=== PATIENT | male | born 1940 | race Caucasian/White ===

== ENCOUNTER 2025-03-08 16:21 | Inpatient (IN) | payer MEDICARE, SELFPAY ==
[2025-03-08] VITALS (12 sets, daily range): BP systolic 100–125; BP diastolic 50–67; BMI 31.3; BMI 30.6
[2025-03-08 11:48] LABS: Hematocrit 24.7 % (39.0-52.0); Hemoglobin 7.5 g/dL (13.0-18.0); Mean Corp Hgb Conc. 30.4 g/dL (33.0-37.0); Mean Corpuscular Volume 90.8 fL (80.0-94.0); Nucleated Red Blood Cells % 0 % (-); Platelet Count 207 10^3/uL (130-400); Red Cell Dist. Width 18.1 % (11.5-14.5)
[2025-03-08 12:02] LABS: ALT (SGPT) 48 U/L (0-50); AST (SGOT) 54 U/L (17-59); Albumin 3.6 g/dl (3.5-5.0); Alkaline Phosphatase 143 U/L (38-126); Blood Urea Nitrogen 54 mg/dl (9-20); Calcium 10.6 mg/dl (8.4-10.2); Carbon Dioxide 25 mmol/L (22-30); Chloride 105 mmol/L (98-107); Estimated Creatinine Clearance 35 ml/min; Glucose 164 mg/dl (70-99); Potassium 5.8 mmol/L (3.5-5.1); Sodium 135 mmol/L (135-145); Total Protein 6.5 g/dl (6.3-8.2); eGFR 36.66
[2025-03-08 12:20] LABS: Troponin I 0.017 ng/ml
[2025-03-08 12:38] LABS: Urine Character Clear (Clear)
[2025-03-08 13:45] LABS: Urine Red Blood Cell 0-2 /HPF (0-2)
--- NOTE | 2025-03-08 13:55 | ED.GENMED ---
History of Present Illness
<Carla Vogel PA-C - Last Filed: 03/08/25 22:18>
General
Chief Complaint: Change in Mental Status
Source: patient and family
Exam Limitations: dementia
Time Seen by Provider: 03/08/25 12:13
Nursing documentation reviewed up to this point in time: agreed with
History of Present Illness
History of Present Illness:
Patient is an 84-year-old male with history atrial fibrillation on Eliquis, congestive heart failure, hypertension, hyperlipidemia, CKD, insulin-dependent diabetes who presents to the emergency department for evaluation of altered mental status.
Patient's daughter reports a gradual decline in his mental status over the past week. There have been multiple instances where he has been forgetful and confused about his medications.
He was seen at [facility] yesterday with concern of UTI. Apparently he had lab work, urinalysis, chest x-ray, and a CT scan of his head and discharged back home.
Today, patient seemed persistently confused prompting return to the emergency department for second opinion.
On arrival, patient has no acute complaints. He specifically denies any headache, chest pain, shortness of breath, or abdominal pain. There has been no recent history of fever.
Patient lives in independent living at [facility] however his family is currently looking to obtain additional care with possible assisted living.
Review of Systems
<Carla Vogel PA-C - Last Filed: 03/08/25 22:18>
Review of Systems
Allergies reviewed?: Yes
All Other Systems: ROS reviewed and negative except as documented in HPI and ROS
Phy Exam
<Carla Vogel PA-C - Last Filed: 03/08/25 22:18>
Physical Exam
Physical Exam:
Vitals: Patient's vital signs are stable. Afebrile
General: Patient is generally weak appearing
Skin: Warm and dry, no rashes or lesions
Head: Normocephalic, atraumatic
Eyes: Sclera nonicteric. EOMs intact. No nystagmus.
Throat: Protecting airway
Neck: Normal ROM, no cervical spine tenderness, no meningismus
Cardiac: Regular rate and rhythm, no murmurs.
Pulm: Normal respiratory effort, no wheezes, rales, rhonchi heard on exam
Abdomen: Abdomen soft and nontender.
Extremities: Bilateral lower extremity edema right > left
Neuro: AAOx3. Fluid speech however somewhat disorganized thought process. No focal neurologic deficits.
Psychiatric: Normal affect.
Course
<Carla Vogel PA-C - Last Filed: 03/08/25 22:18>
Orders/Labs/Results
Orders:
Orders
03/08/25 Breakfast
Clear Liquid
At Your Request: Limited Participation
Does patient need a safe tray?: No
03/08/25 11:35
EKG [Electrocardiogram (*1)] Urgent
Reason for Study: Fatigue / Weakness
03/08/25 11:36
EKG- Treatment ONCE
03/08/25 11:37
Complete Blood Count/With Diff Urgent
Comprehensive Metabolic Panel Urgent
Ferritin Urgent
Comment: ADD ON
Glycohemoglobin (HgbA1c) Urgent
Iron Urgent
Comment: ADD ON
NT-proBNP Urgent
Total Iron Binding Urgent
Comment: ADD ON
Troponin I Urgent
Urinalysis Reflex To Culture Urgent
Date Specimen was Collected: 03/08/25
Time Specimen was Collected: 11:36
Urine Microscopic Reflex Cult Urgent
03/08/25 14:43
Add On- LAB Urgent
Tests Added?: Ferritin, iron, TIBC
pacemaker [Interrogate Pacemaker- Treatment] ONCE
Pantoprazole [Protonix IV] 80 mg IV NOW STA
03/08/25 14:46
CR Chest - 2 Views Urgent
Comment:
Reason For Exam: CHF, elevated BNP
03/08/25 15:46
Admit/Transfer Patient As Directed
Co-Sign Provider:
Level of Care: Inpatient admission
Assign to:: Telemetry
Physician / Group: Bin
Diagnosis: TME, CAMMY, Hyperkalemia, Anemia/GI Bleed
Reason for Telemetry: Arrhythmia
Date to Stop Telemetry: 03/11/25
Time to Stop Telemetry: 11:00
Reason for Hospitalization: GI consult, Protonix IVFs
Expected length of stay greater than two midnights?: Yes
ELOS- Estimated Length of Stay in days: 3
I certify the patient meets the requirements for IP care: Yes
PRN Pain Medication Management As Directed
May give lesser potent ordered pain med per pt: Yes
preference::
Protocol:: Medication orders for pain may be administered in a
manner that supports deferring to patient preference
when the pt is:
- Requesting an ordered lesser potent pain medication.
Least to most potent pain medications are defined
as: acetaminophen < NSAID < tramadol < opioids
(morphine, oxycodone, hydromorphone).
- Requesting a lesser dose of the same medication IF
ORDERED.
- Requesting a less intrusive route of administration
if both routes are prescribed by the provider (PO <
IV).
03/08/25 15:50
Code Status As Directed
Resuscitation Status: Full Code
03/08/25 16:00
0.9% Sodium Chloride 500 ml [Nss] 500 ml IV 80 mls/hr
03/08/25 16:12
Type+Screen Routine
H&H Routine
03/08/25 20:01
Acetaminophen [Tylenol] 650 mg PO Q4HPRN PRN
Dextrose 50%-Water [Dextrose 50% Syringe] 12.5 grams IV [id number] PRN
Glucagon [GlucaGen] 1 mg IM PRN PRN
Metoprolol [Lopressor] 100 mg PO BID
03/08/25 20:01
Add On- LAB Routine
Tests Added?: HgbA1C to today's lab
GASTROINTESTINAL CONSULT Routine
Consulting Provider: Sandro White
Was physician already notified: Yes
Activity As Directed
Activity Level: Out of Bed-Early Mobility
With Assistance
Bedside Glucose Monitoring As Directed
Frequency: AC&HS
Additional Instructions:: Change to q6h if pt on TPN, tube feeding or not eating
Bladder Scan As Directed
Follow Bladder Retention/Intermittent Cath Algorithm?: Yes
PRN if no void in __ hours: 6
Frequency: Per Retention Algorithm
If Bladder Scan Result >: 400
then:: Straight cath
I&O [Intake/ Output] As Directed
Frequency: q12h
Pneumatic Compression Sleeves As Directed
Type: Knee high
Straight Cath As Directed
Frequency: Per Retention Algorithm
Additional Instructions: straight cath as needed per acute urinary retention algorithm for 24 hrs
Additional Instructions: for bladder scan greater than 400 mL
Vital Signs As Directed
Frequency: Per unit guidelines
Weight As Directed
Frequency: Daily
DX Deep Vein Thrombosis Video Routine
03/09/25 00:00
Insulin Aspart Corrective Mod [Novolog Flexpen-Moderate Resistance] See Protocol SC Q6
03/09/25 04:00
Pantoprazole [Protonix IV] 40 mg IV Q12H
03/09/25 Breakfast
NPO
Allow oral meds: Yes
Allow clear liquids: 4hrs prior to procedure
Comment: may have unrestricted clear liquid up to 4 hrs prior to scheduled procedure
Basic Metabolic Panel IN AM
Complete Blood Count/No Diff IN AM
Levothyroxine [Synthroid] 75 mcg PO DAILY@0600
03/09/25 08:00
Ferrous Sulfate [Feosol] 325 mg PO DAILY
Montelukast Sodium [Singulair] 10 mg PO DAILY
Tamsulosin [Flomax] 0.4 mg PO DAILY
insulin glargine 8 unit SC DAILY
rosuvastatin 40 mg PO DAILY
03/11/25 11:00
DC Protocol for Telemetry ONCE
Abnormal Lab Results
03/08/25 03/08/25
11:37 16:12
RBC 2.72 L 10^6/uL
(4.70-6.10)
Hgb 7.5 L g/dL 7.2 L g/dL
(13.0-18.0) (13.0-18.0)
Hct 24.7 L % 24.2 L %
(39.0-52.0) (39.0-52.0)
MCHC 30.4 L g/dL
(33.0-37.0)
RDW 18.1 H %
(11.5-14.5)
Absolute Monos (auto) 0.9 H 10^3/uL
(0.1-0.6)
Lymphocytes % 18.5 L %
(20.5-51.1)
Monocytes % 11.6 H %
(1.7-9.3)
Potassium 5.8 H mmol/L
(3.5-5.1)
BUN 54 H mg/dl
(9-20)
Creatinine 1.8 H mg/dL
(0.7-1.3)
Glucose 164 H mg/dl
(70-99)
Calcium 10.6 H mg/dl
(8.4-10.2)
Iron 30 L ug/dl
(49-181)
% Saturation 7 L %
(20-50)
Alkaline Phosphatase 143 H U/L
(38-126)
Urine Bacteria (Reflex) Few A
(Negative)
Urine Albumin (Reflex) 2+ A
(Neg - Trace)
03/08/25 16:12
03/08/25 11:37
Vital Signs
Initial and Last Documented VS:
Initial Vital Signs
BP
101/52
03/08/25 11:22
Last Documented Vital Signs
Temp Pulse Resp BP Pulse Ox
98.3 F 62 18 122/53 97
03/08/25 20:14 03/08/25 20:14 03/08/25 20:14 03/08/25 20:14 03/08/25 20:14
<Topher Lama, DO - Last Filed: 03/08/25 16:47>
Orders/Labs/Results
Orders:
Orders
03/08/25 Breakfast
Clear Liquid
At Your Request: Limited Participation
Does patient need a safe tray?: No
03/08/25 11:35
EKG [Electrocardiogram (*1)] Urgent
Reason for Study: Fatigue / Weakness
03/08/25 11:36
EKG- Treatment ONCE
03/08/25 11:37
Complete Blood Count/With Diff Urgent
Comprehensive Metabolic Panel Urgent
Ferritin Urgent
Comment: ADD ON
Glycohemoglobin (HgbA1c) Urgent
Iron Urgent
Comment: ADD ON
NT-proBNP Urgent
Total Iron Binding Urgent
Comment: ADD ON
Troponin I Urgent
Urinalysis Reflex To Culture Urgent
Date Specimen was Collected: 03/08/25
Time Specimen was Collected: 11:36
Urine Microscopic Reflex Cult Urgent
03/08/25 14:43
Add On- LAB Urgent
Tests Added?: Ferritin, iron, TIBC
pacemaker [Interrogate Pacemaker- Treatment] ONCE
Pantoprazole [Protonix IV] 80 mg IV NOW STA
03/08/25 14:46
CR Chest - 2 Views Urgent
Comment:
Reason For Exam: CHF, elevated BNP
03/08/25 15:46
Admit/Transfer Patient As Directed
Co-Sign Provider:
Level of Care: Inpatient admission
Assign to:: Telemetry
Physician / Group: Bin
Diagnosis: TME, CAMMY, Hyperkalemia, Anemia/GI Bleed
Reason for Telemetry: Arrhythmia
Date to Stop Telemetry: 03/11/25
Time to Stop Telemetry: 11:00
Reason for Hospitalization: GI consult, Protonix IVFs
Expected length of stay greater than two midnights?: Yes
ELOS- Estimated Length of Stay in days: 3
I certify the patient meets the requirements for IP care: Yes
PRN Pain Medication Management As Directed
May give lesser potent ordered pain med per pt: Yes
preference::
Protocol:: Medication orders for pain may be administered in a
manner that supports deferring to patient preference
when the pt is:
- Requesting an ordered lesser potent pain medication.
Least to most potent pain medications are defined
as: acetaminophen < NSAID < tramadol < opioids
(morphine, oxycodone, hydromorphone).
- Requesting a lesser dose of the same medication IF
ORDERED.
- Requesting a less intrusive route of administration
if both routes are prescribed by the provider (PO <
IV).
03/08/25 15:50
Code Status As Directed
Resuscitation Status: Full Code
03/08/25 16:00
0.9% Sodium Chloride 500 ml [Nss] 500 ml IV 80 mls/hr
03/08/25 16:12
Type+Screen Routine
H&H Routine
03/08/25 20:01
Acetaminophen [Tylenol] 650 mg PO Q4HPRN PRN
Dextrose 50%-Water [Dextrose 50% Syringe] 12.5 grams IV [id number] PRN
Glucagon [GlucaGen] 1 mg IM PRN PRN
Metoprolol [Lopressor] 100 mg PO BID
03/08/25 20:01
Add On- LAB Routine
Tests Added?: HgbA1C to today's lab
GASTROINTESTINAL CONSULT Routine
Consulting Provider: Sandro White
Was physician already notified: Yes
Activity As Directed
Activity Level: Out of Bed-Early Mobility
With Assistance
Bedside Glucose Monitoring As Directed
Frequency: AC&HS
Additional Instructions:: Change to q6h if pt on TPN, tube feeding or not eating
Bladder Scan As Directed
Follow Bladder Retention/Intermittent Cath Algorithm?: Yes
PRN if no void in __ hours: 6
Frequency: Per Retention Algorithm
If Bladder Scan Result >: 400
then:: Straight cath
I&O [Intake/ Output] As Directed
Frequency: q12h
Pneumatic Compression Sleeves As Directed
Type: Knee high
Straight Cath As Directed
Frequency: Per Retention Algorithm
Additional Instructions: straight cath as needed per acute urinary retention algorithm for 24 hrs
Additional Instructions: for bladder scan greater than 400 mL
Vital Signs As Directed
Frequency: Per unit guidelines
Weight As Directed
Frequency: Daily
DX Deep Vein Thrombosis Video Routine
03/09/25 00:00
Insulin Aspart Corrective Mod [Novolog Flexpen-Moderate Resistance] See Protocol SC Q6
03/09/25 04:00
Pantoprazole [Protonix IV] 40 mg IV Q12H
03/09/25 Breakfast
NPO
Allow oral meds: Yes
Allow clear liquids: 4hrs prior to procedure
Comment: may have unrestricted clear liquid up to 4 hrs prior to scheduled procedure
Basic Metabolic Panel IN AM
Complete Blood Count/No Diff IN AM
Levothyroxine [Synthroid] 75 mcg PO DAILY@0600
03/09/25 08:00
Ferrous Sulfate [Feosol] 325 mg PO DAILY
Montelukast Sodium [Singulair] 10 mg PO DAILY
Tamsulosin [Flomax] 0.4 mg PO DAILY
insulin glargine 8 unit SC DAILY
rosuvastatin 40 mg PO DAILY
03/11/25 11:00
DC Protocol for Telemetry ONCE
Abnormal Lab Results
03/08/25 03/08/25
11:37 16:12
RBC 2.72 L 10^6/uL
(4.70-6.10)
Hgb 7.5 L g/dL 7.2 L g/dL
(13.0-18.0) (13.0-18.0)
Hct 24.7 L % 24.2 L %
(39.0-52.0) (39.0-52.0)
MCHC 30.4 L g/dL
(33.0-37.0)
RDW 18.1 H %
(11.5-14.5)
Absolute Monos (auto) 0.9 H 10^3/uL
(0.1-0.6)
Lymphocytes % 18.5 L %
(20.5-51.1)
Monocytes % 11.6 H %
(1.7-9.3)
Potassium 5.8 H mmol/L
(3.5-5.1)
BUN 54 H mg/dl
(9-20)
Creatinine 1.8 H mg/dL
(0.7-1.3)
Glucose 164 H mg/dl
(70-99)
Calcium 10.6 H mg/dl
(8.4-10.2)
Iron 30 L ug/dl
(49-181)
% Saturation 7 L %
(20-50)
Alkaline Phosphatase 143 H U/L
(38-126)
Urine Bacteria (Reflex) Few A
(Negative)
Urine Albumin (Reflex) 2+ A
(Neg - Trace)
03/08/25 16:12
03/08/25 11:37
Vital Signs
Initial and Last Documented VS:
Initial Vital Signs
BP
101/52
03/08/25 11:22
Last Documented Vital Signs
Temp Pulse Resp BP Pulse Ox
98.3 F 62 18 122/53 97
03/08/25 20:14 03/08/25 20:14 03/08/25 20:14 03/08/25 20:14 03/08/25 20:14
<Carla Vogel PA-C - Last Filed: 03/08/25 22:18>
MDM/Problems Addressed
Differential Diagnosis Includes:
Not limited to: viral illness, UTI, electrolyte abnormality, progression of disease, intracranial hemorrhage, etc
MDM/Problems Addressed:
84-year-old male with progressive decline in mental status over the past week. No history of recent trauma. No infectious symptoms. Patient seen at [facility] yesterday with thorough work up, including labs, urinalysis, chest x-ray, CT head
and ultimately discharged home.
Vitals stable. On exam, patient in no distress. He is alert and oriented with no focal neurologic deficits however he does seem to have somewhat disorganized thought process. Abdomen benign. Cardio/pulmonary assessment unremarkable.
Basic labs obtained prior to my evaluation significant for anemia with hemoglobin of 7.1. Chemistry reveals renal insufficiency. Urinalysis does not appear infected. Chest X-ray without acute findings.
Labs appear relatively stable from yesterday.
He had a normal head CT yesterday � do not feel repeat imaging indicated at this time.
Given anemia, a rectal exam was performed, which shows briskly heme positive dark stool. While unclear if this may be contributing to his mental status � evidence of G.I. bleeding on Eliquis likely cause of worsening anemia and will requiring
inpatient management.
He may require placement in assisted living upon discharge. Patient given IV Protonix and admitted to hospitalist service in stable condition.
Chronic conditions affecting care:
Dementia, atrial fibrillation on eliquis
Acute Exacerbation and/or Progression of Chronic Illness:
GI bleeding on eliquis
<Carla Vogel PA-C - Last Filed: 03/08/25 22:18>
*Radiology
Radiology exam reviewed: preliminary read by ED provider and radiology read reviewed
*Pulse Oximetry
SaO2: 100
Oxygen Mode of Delivery: Room air
Patient hypoxic: no
*EKG
Interpreted by ED Provider?: Yes
EKG Intrepretation Date: 03/08/25
Interpretation: abnormal
Comparison EKG: no comparison EKG present
Heart Rate: 60
Rate: normal
Rhythm: ventricular paced
Interval: long QT
*Pipe Straightener Interpretation
Rate: normal
Interpretation: abnormal
Heart Rate: 62
Rhythm: ventricular paced
*Critical Care Note
Total Time (30-74mins, 75-104mins- exclusive of procedures): Not Applicable
Data Reviewed
Review of Other/Old Records Reveals: Labs (Labs performed yesterday at [facility]) and Radiology Studies (Reviewed Head CT performed at [place] yesterday)
<Carla Vogel PA-C - Last Filed: 03/08/25 22:18>
Patient Management
Discussion with other providers: Hospitalist and Director [employer] Engineering (Discussed w/ ED attending physician)
ED Attending Note
<Carla Vogel PA-C - Last Filed: 03/08/25 22:18>
-
Portions of this chart may have been created with voice recognition software.� Occasional wrong word or��sound alike� substitutions may have occurred due to the inherent limitations of voice recognition software.
<Topher Lama DO - Last Filed: 03/08/25 16:47>
ED Attending Note
Patient seen and examined by attending physician: Yes
I performed the substantive portion of visit, reviewed & personally made and approve the management plan that is documented in note by myself or LES.: Yes
ED Attending Note:
I evaluated the patient at bedside. The patient's hemoglobin is low at 7.5 and has heme positive dark brown stool. The hemoglobin at [place] yesterday reportedly was 7.6. Iron levels are low. Daughter states he is doing poorly at [facility].
May need higher level of care but I am concerned of the very low hemoglobin with heme positive stool. Will plan keeping in the hospital tonight.
Discharge Plan
Departure
Patient Disposition: Admit
Date of Disposition: 03/08/25
Time of Disposition: 14:43
Presentation/result/management discussed w/ accepting MD/DO: Hospitalist
Discharge Problem:
Altered mental status, GI bleeding
Interventions
Interventions:
*Risk Screen - Suicide Last Done: 03/08/25 11:21
*General Assessment Last Done: 03/08/25 11:33
*Neglect/Abuse Screening Last Done: 03/08/25 11:21
*ED- Fall Risk Assessment Last Done: 03/08/25 11:21
*ED COVID-19 Vaccine History Last Done: 03/08/25 11:21
*ED Influenza Vaccine History Last Done: 03/08/25 11:21
*Nursing Disposition Last Done: 03/08/25 19:57
ED- Pulmonary Assessment Last Done: 03/08/25 19:57
ED-Psychological Assessment Last Done: 03/08/25 19:57
ED- Neurological Assessment Last Done: 03/08/25 11:34
ED- Cardiac Assessment Last Done: 03/08/25 19:57
ED Swallowing Screen Last Done: 03/08/25 14:04
Discharge Date and Time
Discharge Date/Time: 03/08/25 20:05
[2025-03-08 15:19] LABS: Iron 30 ug/dl (49-181)
[2025-03-08 15:29] LABS: Total Iron Binding Capacity 426 ug/dl (261-462)
[2025-03-08] MEDS: PROTONIX IV 80 MG IV (15:39)
--- NOTE | 2025-03-08 15:43 | HPS.HSE ---
Addendum entered and electronically signed by Zack Steward MD 03/08/25 16:32:
This is an addendum to the H&P written by Chantelle Eastman on 03/08/2025. �Patient seen and examined independently with PA.
84-year-old male past medical history of atrial fibrillation on Eliquis with pacemaker, HFpEF, hypertension, hyperlipidemia, CKD3, diabetes, hypothyroidism, vascular dementia, presenting with altered mental status. �Gradual decline in mental status
over the past week. Had CT scan of the head yesterday at [facility] which was negative.
Hospitalized in February for HFpEF and urinary tract infection. �He was diuresed and lost 40 pounds. �Returned to independent living a week ago with progressive confusion.
Hemoglobin 9.7 in May.
Vital signs unremarkable. �Rectal exam showed dark brown brisk heme positive stool.
�Labs show hemoglobin of 7.5. �Potassium 5.8. �Creatinine 1.8. �Cardiac BNP 2000. �Calcium of 10.6. �Urinalysis unremarkable.
Worsening�mental status appears to be acute metabolic encephalopathy secondary to likely CAMMY/uremia/hyperkalemia on CKD likely from overdiuresis and nephrotoxic medication. �Gentle IV fluids although caution given history of heart failure. �Hold
valsartan, spironolactone and Bumex.
He appears to have acute blood loss anemia from upper GI bleeding. �NPO past midnight. �Protonix 40 twice daily. �Hold Eliquis. �GI consulted. �Type and screen and blood consent signed.
Original Note:
Family Physician
-
Family Physician: Kedar Cain
Chief Complaint
-
Confusion
History of Present Illness
Patient is an 84 y/o male past medical history of paroxysmal atrial fibrillation, congestive heart failure, prior stroke, hypertension, hyperlipidemia, diabetes mellitus, chronic kidney disease, anemia of chronic disease, vascular dementia,
hypothyroidism, and BPH who presents with confusion. Additional history is obtained from patient's daughter at the bedside. Patient was hospitalized at [place] in February for acute heart failure at which time he was diuresed ~30-40lbs. He was
initially discharged to SNF and returned to his independent apartment at [facility] about a week ago. Over the past few days patient has been experiencing increasing confusion. Daughter notest that he has been confused about his medications.
There was concern he gave himself too much insulin yesterday and he presented to [facility]. He had work up including CBC, BMP, UA, CXR, and Head CT; and was subsequently discharged home. His confusion continued this morning and his family
brought him to [facility] for evaluation.
Medical History
Past Medical History
Past Medical History: Reports Other
Additional Past Medical History:
Congestive Heart Failure, preserved EF
Paroxysmal Atrial Fibrillation
CVA
Essential Hypertension
Hyperlipidemia
Diabetes Mellitus, Type II
CKD Stage III
Anemia of Chronic Disease
Vascular Dementia
Depression / Adjustment Disorder
Hypothyroidism
BPH
Spinal Stenosis
Past Surgical History: Reports Other
Additional Past Surgical History:
Permanent Pacemaker
Right Total Knee Replacement
L2/L4/L5/S1 Spinal Surgery
Lumbar Spinal Stimulator
Appendectomy
Penile Implant
Gastric Banding
Social History
Tobacco: Non-smoker
Alcohol: None
Family History
Family History: Not pertinent
Allergies / Home Medications
Allergies reflects when Allergies were last updated in [email or web address].
Home Medications with original date entered in [email or web address]
Allergy/Medication List:
Allergies
Allergy/AdvReac Type Severity Reaction Status Date / Time
amoxicillin (From Augmentin) Allergy Unknown Verified 03/08/25 11:21
clavulanic acid (From Allergy Unknown Verified 03/08/25 11:21
Augmentin)
Home Medications
apixaban 5 mg tablet (Eliquis) 5 mg PO BID 03/08/25
aspirin 325 mg tablet 325 mg PO DAILY 03/08/25
bumetanide 1 mg tablet 1 mg PO DAILY 03/08/25
cholecalciferol (vitamin D3) 25 mcg (1,000 unit) capsule 25 mcg PO DAILY 03/08/25
cyanocobalamin (vitamin B-12) 1,000 mcg tablet 1,000 mcg PO DAILY 03/08/25
ferrous sulfate 325 mg (65 mg iron) tablet 325 mg PO DAILY 03/08/25
insulin glargine 100 unit/mL (3 mL) subcutaneous pen 15 unit SC DAILY 03/08/25
levothyroxine 75 mcg tablet 75 mcg PO DAILY 03/08/25
metoprolol tartrate 100 mg tablet 100 mg PO BID 03/08/25
montelukast 10 mg tablet 10 mg PO DAILY 03/08/25
oxycodone-acetaminophen 5 mg-325 mg tablet 1 tab PO Q6H PRN moderate pain 03/08/25
rosuvastatin 40 mg tablet 40 mg PO DAILY 03/08/25
sitagliptin phosphate 50 mg-metformin 500 mg tablet (Janumet) 1 tab PO BID 03/08/25
spironolactone 25 mg tablet 25 mg PO DAILY 03/08/25
tamsulosin 0.4 mg capsule 0.4 mg PO DAILY 03/08/25
therapeutic multivitamin 1 tab PO DAILY 03/08/25
valsartan 160 mg tablet 160 mg PO DAILY 03/08/25
Review of Systems
-
A 12 point ROS was completed and negative except as noted: Yes
Constitutional: Denies Fever or Chills
Respiratory: Denies Cough or Trouble Breathing
Cardiac: Denies Chest Pain or Palpitations
Abdomen/GI: Denies Abdominal Pain, Nausea, Vomiting or Diarrhea
Physical Exam
Vital Signs
Vital Signs
Temp Pulse Resp BP Pulse Ox
98.1 F 60 18 111/57 100
03/08/25 11:23 03/08/25 15:15 03/08/25 15:15 03/08/25 15:00 03/08/25 15:00
Physical Exam
General: Comfortable and Conversant
HEENT: Anicteric and Moist mucous membranes
Respiratory: Clear and Non Labored Respirations
Cardiac: S1/S2 and Regular Rhythm
GI: Soft and Non Tender
Rectal: Hem Positive (Per ED provider)
Musculoskeletal: No Clubbing, No Cyanosis and Other (+1 pitting edema bilateral lower extremities, which patient reports is significantly improved )
Skin: Warm and Dry
Neuro: Awake, Alert and Nonfocal/grossly intact
Psych: Calm
Laboratory Results
-
03/08/25 11:37
03/08/25 11:37
Laboratory Results
Total Bilirubin 0.6 mg/dl (0.2-1.3) 03/08/25 11:37
AST 54 U/L (17-59) 03/08/25 11:37
ALT 48 U/L (0-50) 03/08/25 11:37
Alkaline Phosphatase 143 U/L (38-126) H 03/08/25 11:37
Troponin I 0.017 ng/ml 03/08/25 11:37
Data Reviewed
-
Diagnostic Radiology: Report Reviewed by me
Lab Data: Labs Reviewed by me
Old Records: Reviewed
Impression/Plan
-
Increased Confusion, likely TME due to Hyperkalemia / Uremia / CAMMY on CKDIII
-Baseline creatinine ~1.3 per records from May 2024
-Hold Bumex, Spironolactone and Losartan
-Patient states he was also taking potassium tablets (possible 2 or 4 20mEq tablets daily?) - This medication does show a recent prescription fill but was not listed on his medication list from [facility], or list form [place]
-Give small amount of IVFs
-Repeat labs later this evening and in AM
Acute Blood Loss Anemia on Anemia of Chronic Disease
-Baseline Hgb ~9.7 per records from May 2024
-Trend serial Hgb
-Blood consent obtained by Dr. Steward at time of admission
Heme-Positive Stool / GI Bleed
-Consult GI
-Continue Protonix 40mg IV BID
-Allow clear liquids today then NPO after midnight
Congestive Heart Failure, preserved EF
-Suspect patient is slightly over diuresed
-Hold Bumex and Spironolactone
-Monitor Daily Weights
Paroxysmal Atrial Fibrillation
-Eliquis on hold due to heme-positive stools
-Continue metoprolol for rate control
Hx CVA
-Continue aspirin
Essential Hypertension
-Continue metoprolol
-Losartan and spironolactone on hold
Hyperlipidemia
-Continue rosuvastatin
Diabetes Mellitus, Type II
-Continue glargine at half usual dose
-Monitor sugars and continue coverage insulin
Hypothyroidism
-Continue levothyroxine
BPH
-Continue tamsulosin
Vascular Dementia, per paperwork from [facility]
-Monitor for mood/behavior changes during hospitalization
DVT proph: SCDs
Code Status: Full Code
[2025-03-08 16:08] LABS: Ferritin 26.8 ng/ml (17.9-464.0)
[2025-03-08] MEDS: NSS 500 IV (16:14)
[2025-03-08 16:29] LABS: Hematocrit 24.2 % (39.0-52.0); Hemoglobin 7.2 g/dL (13.0-18.0)
[2025-03-08 19:23] LABS: Blood Urea Nitrogen 46 mg/dl (9-20); Calcium 8.9 mg/dl (8.4-10.2); Carbon Dioxide 24 mmol/L (22-30); Chloride 110 mmol/L (98-107); Estimated Creatinine Clearance 42 ml/min; Glucose 134 mg/dl (70-99); Sodium 136 mmol/L (135-145); eGFR 45.62
[2025-03-08 21:24] LABS: Glucose - Point of Care 198 mg/dl (70-99)
[2025-03-08 21:52] LABS: Hematocrit 24.5 % (39.0-52.0); Hemoglobin 7.1 g/dL (13.0-18.0)
[2025-03-09] VITALS (11 sets, daily range): BP systolic 104–146; BP diastolic 59–76
[2025-03-09 00:14] LABS: Glucose - Point of Care 123 mg/dl (70-99)
[2025-03-09] MEDS: NOVOLOG FLEXPEN-MODERATE RESISTANCE SC ×3 (00:16→17:01)
[2025-03-09] MEDS: LOPRESSOR PO (00:29)
[2025-03-09] MEDS: TYLENOL 650 MG PO (02:03)
--- NOTE | 2025-03-09 02:14 | PTCARENOTE ---
received pt from ED at 201403/08/2025. pt ambulated from stretcher to bed with rolling walker. pt A&O x 3. pt offers no current complaints. bed alarm pulled in. call jacobs within reach. plan of care ongoing.
[2025-03-09] MEDS: NSS (PRESERVATIVE FREE) 10 ML IV ×2 (04:15→17:03)
[2025-03-09] MEDS: PROTONIX IV 40 MG IV ×2 (04:15→17:03)
[2025-03-09 04:26] LABS: Hematocrit 22.7 % (39.0-52.0); Hemoglobin 7.0 g/dL (13.0-18.0)
--- NOTE | 2025-03-09 04:33 | W.PN.UPDATE ---
Update Note
Progress Note Update
hgb level is trending down gradually, on admission 7.5-->7.2-->7.1 and this morning hgb is 7, vital signs within the baseline. No visible signs of bleeding. One unit of blood ordered.
[2025-03-09 06:20] LABS: Glucose - Point of Care 130 mg/dl (70-99)
[2025-03-09] MEDS: SYNTHROID 75 MCG PO (06:22)
--- NOTE | 2025-03-09 06:38 | CON.GI ---
Addendum entered and electronically signed by Sandro White MD 03/09/25 10:18:
Patient seen and examined, agree with nurse practitioner note. Patient is an 84-year-old male with past medical history as noted who presents to [place] with confusion. He was noted to have renal insufficiency and hyperkalemia, Also found to
have hemoglobin of 7.5. He states that he is never been anemic that he recalls in the past. Looking back it looks like the have been having dark stools that was unclear. In the ER he did have dark stool that was heme positive. He is up on the
Eliquis for many years for paroxysmal A-fib. He had recent hospitalization for heart failure at [place] though currently feels well and denies any shortness of breath. He states his last colonoscopy was with Dr. Sage, at least 5 years ago and
okay by report. He has occasional NSAID use. He currently denies any abdominal pain, nausea or vomiting. On exam he has no significant abdominal tenderness.
1. Anemia: Likely acute blood loss given his dark stools in the setting of Eliquis, with iron deficiency as well, unclear what his baseline is. He currently has no signs of brisk active bleeding and is hemodynamically stable. His last dose of
Eliquis was yesterday morning. At this point we will continue clear liquid diet, PPI and observation. Will plan EGD in the morning. If negative then likely colonoscopy to follow. I discussed with him and his daughter at length.
Original Note:
Consultation
-
Date/Time Consultation Requested: 03/08/251999
Date/Time Consultation Performed: 03/09/25 0640
Requesting Provider: Chantelle Sepulveda PA-C
Performing Provider: RODRIGO Pang, Dinesh White MD
Reason for Consultation: anemia
Medical History
Chief Complaint / HPI
History of Present Illness:
Pt is a 84yo with hx PAF on Eliquis for several years, congestive heart failure with preserveed EF, prior stroke, hypertension, hyperlipidemia, diabetes mellitus, sleep apnea chronic kidney disease, NIDDM, anemia of chronic disease, obesity with
prior gastric band, vascular dementia, hypothyroidism, and BPH with recent admission to [place] in February for acute heart failure with diuresis. He went to SNF then back for [facility] for last week and noted with confusion and presents to .
On admission pt was noted with K 5.8 creat 1.8, calcium 10.6, hbg down to 7 after admission with baseline around 9 range iron 30, TIBC 426, % sat 7 and ferritin 26.8. Pt as also noted with dark heme + stool in ER.
In review with pt and daughter Maria Esther no history of anemia in past. Pt may have had colonoscopy years ago. He did not recall EGD in past but ? completed with gastric banding in past. He currently denies any GI complaints of odynophagia,
dysphagia, GERD, nausea, vomiting, bloating, abdominal pain, diarrhea, constipation or visible blood/black in stool. + wt loss since gastric band over several years. Occasional NSAID use and denies daily ASA as noted on home med list but does use
Tylenol as needed.
Past Medical History
Past Medical History: Arrhythmias (PAF), CHF, CVA, GERD, HTN, Hypercholesterolemia, Hypothyroidism, NIDDM, Renal Failure (CKD stage III), Psychiatric (vascular dementia, depression/adjustment disorder) and Other (anemia of chronic disease, BPH,
spinal stenosis, chronic back pain, sleep apnea)
Past Surgical History: Cardiac (pacer ), Orthopedic (right TKR, spinal surgery ) and Other (spinal stimulator, penile implant , gastric banding )
Social History
Tobacco: Non-Smoker
Alcohol: None
Drug: None
Living: Other ([facility] )
Employment: Retired
Family History
Family History: Other (pt denies family hx GI issues )
Allergies / Home Medications
Allergy/AdvReac Type Severity Reaction Status Date / Time
amoxicillin (From Augmentin) Allergy Unknown Verified 03/08/25 11:21
clavulanic acid (From Allergy Unknown Verified 03/08/25 11:21
Augmentin)
�Medication �Instructions �Recorded
apixaban 5 mg tablet (Eliquis) 5 mg PO BID 03/08/25
aspirin 325 mg tablet 325 mg PO DAILY 03/08/25
bumetanide 1 mg tablet 1 mg PO DAILY 03/08/25
cholecalciferol (vitamin D3) 25 25 mcg PO DAILY 03/08/25
mcg (1,000 unit) capsule
cyanocobalamin (vitamin B-12) 1,000 mcg PO DAILY 03/08/25
1,000 mcg tablet
ferrous sulfate 325 mg (65 mg 325 mg PO DAILY 03/08/25
iron) tablet
insulin glargine 100 unit/mL (3 15 unit SC DAILY 03/08/25
mL) subcutaneous pen
levothyroxine 75 mcg tablet 75 mcg PO DAILY 03/08/25
metoprolol tartrate 100 mg tablet 100 mg PO BID 03/08/25
montelukast 10 mg tablet 10 mg PO DAILY 03/08/25
oxycodone-acetaminophen 5 mg-325 1 tab PO Q6H PRN moderate pain 03/08/25
mg tablet
rosuvastatin 40 mg tablet 40 mg PO DAILY 03/08/25
sitagliptin phosphate 50 1 tab PO BID 03/08/25
mg-metformin 500 mg tablet
(Janumet)
spironolactone 25 mg tablet 25 mg PO DAILY 03/08/25
tamsulosin 0.4 mg capsule 0.4 mg PO DAILY 03/08/25
therapeutic multivitamin 1 tab PO DAILY 03/08/25
valsartan 160 mg tablet 160 mg PO DAILY 03/08/25
Review of Systems
-
History Source: Patient and Family
Constitutional: Reports Weight Loss (with hx gastric band )
EENT: Reports No Symptoms
Respiratory: Reports No Symptoms
Cardiac: Reports No Symptoms
Abdomen/GI: Reports No Symptoms
: Reports No Symptoms
Musculoskeletal: Reports No Symptoms
Neurological: Reports Weakness and Other (confusion prior to admission )
Hematologic/Lymphatic: Reports Bleeding (heme + stool in ER)
Vital Signs
Temp Pulse Resp BP Pulse Ox
97.7 F 61 18 133/64 100
03/09/25 05:36 03/09/25 05:36 03/09/25 05:36 03/09/25 05:36 03/09/25 05:36
Physical Exam
Exam
General: Well Developed, Well Nourished and No Apparent Distress
HEENT: Normocephalic and Anicteric
Respiratory: Clear
Cardiac: Regular Rhythm
GI: Soft, Non Tender and Non Distended
Rectal: Other (dark heme + in ER)
Musculoskeletal: No Clubbing and No Cyanosis
Skin: Warm and Dry
Neuro: Awake, Alert and AO x 3
Psych: Calm
Results
WBC 7.6 10^3/uL (4.8-10.8) 03/08/25 11:37
Hgb 7.0 g/dL (13.0-18.0) L 03/09/25 04:10
Hct 22.7 % (39.0-52.0) L 03/09/25 04:10
MCV 90.8 fL (80.0-94.0) 03/08/25 11:37
Plt Count 207 10^3/uL (130-400) 03/08/25 11:37
Absolute Neuts (auto) 4.8 10^3/uL (1.4-6.5) 03/08/25 11:37
Sodium 136 mmol/L (135-145) 03/08/25 18:30
Potassium mmol/L (3.5-5.1) 03/08/25 18:30
Chloride 110 mmol/L (98-107) H 03/08/25 18:30
Carbon Dioxide 24 mmol/L (22-30) 03/08/25 18:30
BUN 46 mg/dl (9-20) H 03/08/25 18:30
Creatinine 1.5 mg/dL (0.7-1.3) H 03/08/25 18:30
Calcium 8.9 mg/dl (8.4-10.2) D 03/08/25 18:30
Total Bilirubin 0.6 mg/dl (0.2-1.3) 03/08/25 11:37
AST 54 U/L (17-59) 03/08/25 11:37
ALT 48 U/L (0-50) 03/08/25 11:37
Alkaline Phosphatase 143 U/L (38-126) H 03/08/25 11:37
Diagnostic Image Results:
03/08/25 CXR
No acute cardiopulmonary abnormality.
Prior GI Procedures:
EGD: pt denies ? hx with gastric band in past
Colonoscopy: years ago
Assessment / Plan
-
Pt is a 84yo with hx PAF on Eliquis for several years, congestive heart failure with preserveed EF, prior stroke, hypertension, hyperlipidemia, diabetes mellitus, sleep apnea chronic kidney disease, NIDDM, anemia of chronic disease, obesity with
prior gastric band, vascular dementia, hypothyroidism, and BPH with recent admission to [place] in February for acute heart failure with diuresis. He went to SNF then back for [facility] for last week and noted with confusion and presents to .
On admission pt was noted with K 5.8 creat 1.8, calcium 10.6, hbg down to 7 after admission with baseline around 9 range iron 30, TIBC 426, % sat 7 and ferritin 26.8. Pt as also noted with dark heme + stool in ER. In review with pt and daughter
Maria Esther no history of anemia or transfusions in past. Pt may have had colonoscopy years ago. He did not recall EGD in past but ? completed with gastric banding in past. He currently denies any GI complaints and denies visible blood/black in stool.
+ wt loss since gastric band over several years. Occasional NSAID use and denies daily ASA as noted on home med but does use Tylenol as needed.
-acute on chronic anemia with iron deficiency with heme + stools in ER
-confusion on admission
-electrolyte imbalance hyperkalemia
-afib on Eliquis prior to admission
other med problems:
-Congestive Heart Failure, preserved EF
-Hx CVA
-Essential Hypertension
-Hyperlipidemia
-Diabetes Mellitus
-Hypothyroidism
-Continue levothyroxine
-BPH
-Vascular Dementia
PLAN:
etiology of iron deficiency anemia related PUD, ulceration around gastric band, ectasia, mass vs other-- pt also with CAMMY on admission can also add to anemia
discussed with patient and daughter Maria Esther-- would like to proceed with GI work up during admission EGD/+/- colonoscopy
daughter will be in later and discuss further with Dr. White for timing with electrolyte imbalance -- pt wishes for daughter to assist with all decisions for care
ok for clear diet today
cont to correct electrolytes
last Eliquis 03/07 PM cont to hold
cont PPI BID
current transfusion running cont to trend hbg
will hold oral iron and add IV iron
reviewed with nursing staff
-
-
Thank you for consultation and allowing me to participate in the patient's care. Please call the communication skills instructor GI physician during the after hours with any questions or concerns.
[2025-03-09 07:34] LABS: Glucose - Point of Care 140 mg/dl (70-99)
[2025-03-09] MEDS: SINGULAIR 10 MG PO (08:36)
[2025-03-09] MEDS: FLOMAX 0.4 MG PO (08:36)
[2025-03-09] MEDS: LOPRESSOR 100 MG PO ×2 (08:37→20:44)
[2025-03-09] MEDS: CRESTOR 40 MG PO (08:37)
[2025-03-09] MEDS: LANTUS 0.08 UNITS SC (08:39)
[2025-03-09 08:40] LABS: Glycohemoglobin (HgbA1c) 6.6 % (4.0-5.9)
[2025-03-09 11:47] LABS: Glucose - Point of Care 281 mg/dl (70-99)
[2025-03-09 11:56] LABS: Hematocrit 26.0 % (39.0-52.0); Hemoglobin 7.6 g/dL (13.0-18.0); Mean Corp Hgb Conc. 29.2 g/dL (33.0-37.0); Mean Corpuscular Volume 92.9 fL (80.0-94.0); Platelet Count 185 10^3/uL (130-400); Red Cell Dist. Width 17.9 % (11.5-14.5)
[2025-03-09] MEDS: NOVOLOG FLEXPEN-MODERATE RESISTANCE 5 UNITS SC (12:05)
[2025-03-09 12:11] LABS: Blood Urea Nitrogen 43 mg/dl (9-20); Calcium 9.6 mg/dl (8.4-10.2); Carbon Dioxide 24 mmol/L (22-30); Chloride 104 mmol/L (98-107); Estimated Creatinine Clearance 37 ml/min; Glucose 241 mg/dl (70-99); Potassium 4.5 mmol/L (3.5-5.1); Sodium 132 mmol/L (135-145); eGFR 39.26
[2025-03-09] MEDS: FERRLECIT 110 MG IV (13:15)
--- NOTE | 2025-03-09 14:04 | W.PN.HOSP.TC ---
Today's Communication/Plan
-
EGD tomorrow
low rate IVF for CAMMY; repeat AM labs
monitor Hb
d/w Daughter
Assessment / Plan
Assessment / Plan
Assessment:
TME in setting of CAMMY
Underlying early vascular dementia
- monitor mentation
- CT: performed 03/07 at [place] (For presentation there with change in mentation) was negative
- per family, patient more alert today
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
Acute hyperkalemia
- Cr baseline 1.3 per records
- holding nephrotoxins, hold potassium
- follow BMP
ABLA on top of anemia of chronic disease and iron deficiency anemia
- s/p 1 unit PRBC; Hb 7.6. repeat 5pm
- IV iron course
acute GI bleed
- continue PPI BID
- GI consulted; EGD tomorrow
Chronic HFpEF
- holding diuretics for CAMMY
- monitor weights/lytes daily
Paroxysmal Atrial Fibrillation
- Eliquis on hold due to heme-positive stools
- continue metoprolol for rate control
Hx CVA
- continue aspirin
Essential Hypertension
- continue metoprolol
- Losartan and spironolactone on hold
Hyperlipidemia
- continue rosuvastatin
Diabetes Mellitus, Type II
- continue glargine at half usual dose
- Monitor sugars and continue coverage insulin
Hypothyroidism
- continue levothyroxine
BPH
- continue tamsulosin
Vascular Dementia, per paperwork from [facility]
- Monitor for mood/behavior changes during hospitalization
DVT ppx: SCDs
Code: Full
Anticipated Discharge: > 48 hours
Subjective/Interval History
-
Date of Service: March 09, 2025
resting comfortably, no complaints at present
Objective Data
-
Labs:
Laboratory Results
03/09/25 03/09/25 03/09/25
04:10 09:15 11:12
WBC 5.9
Hgb 7.0 L Cancelled 7.6 L
Hct 22.7 L Cancelled
Plt Count
Sodium
Potassium
Chloride
Carbon Dioxide
BUN
Creatinine
Glucose
Calcium
03/09/25 03/09/25 03/09/25
11:12 11:12 15:15
WBC
Hgb Cancelled Cancelled
Hct 26.0 L Cancelled Cancelled
Plt Count 185
Sodium 132 L
Potassium 4.5
Chloride 104
Carbon Dioxide 24
BUN 43 H
Creatinine 1.7 H
Glucose 241 H
Calcium 9.6
03/09/25
17:00
WBC
Hgb Pending
Hct Pending
Plt Count
Sodium
Potassium
Chloride
Carbon Dioxide
BUN
Creatinine
Glucose
Calcium
Vital Signs:
Vital Signs
Temp Pulse Resp BP Pulse Ox
97.3 F 61 16 116/68 94
03/09/25 11:29 03/09/25 11:29 03/09/25 11:29 03/09/25 11:29 03/09/25 11:29
I&O
03/08/25 03/09/25 03/10/25
05:59 06:59 06:59
Intake Total 0 / 0 250 / 250
Output Total 1050 / 1050
Balance -1050 / -1050 250 / 250
Physical Exam
-
General: No Apparent Distress
HEENT: Normocephalic and Atraumatic
Respiratory: Negative Wheezes
Cardiac: Regular Rhythm and S1/S2
GI: Soft
Genito-urinary: No Costovertebral Tender
Neuro: AO x 3
Psych: Calm
Data Reviewed
-
Total Time Spent with Patient (in minutes): 42
Labs: Labs Reviewed by me
--- NOTE | 2025-03-09 14:57 | CM ---
Alert awake oriented patient who lives at [facility]. He is independent all activities of daily living but family is going to increase care for pt.Pt has care givers 3 days a week and for 4 hours.Spoke with Maria Esther vega she wants
his Long VN renewed at [facility] also. He uses a walker and rollator. He requested VN at [facility].
Long VN hx /[facility] SN[facility] history
Pharmacy [facility]
PCP DR Kurtz
PLAN Home with Long VN
[2025-03-09] MEDS: NSS 1000 IV (15:12)
[2025-03-09 16:50] LABS: Glucose - Point of Care 100 mg/dl (70-99)
[2025-03-09 17:09] LABS: Hematocrit 29.2 % (39.0-52.0); Hemoglobin 8.4 g/dL (13.0-18.0)
[2025-03-09 21:47] LABS: Glucose - Point of Care 108 mg/dl (70-99)
[2025-03-10] VITALS (11 sets, daily range): BP systolic 13–146; BP diastolic 52–77
--- NOTE | 2025-03-10 04:55 | PTCARENOTE ---
Pt became agitated and complained of L shoulder and L foot pain. RN given Tylenol. Pt requested to speak to a provider with the new onset pain. RN explained we have QUALITY LEAD overnight that can come see him, but it will take a few minutes. Pt became more
agitated and demanded for the QUALITY LEAD to speak with him immediately and expressed he was unhappy stating, 'I thought [facility] was supposed to be better'. Pt refused his Protonix and daily weight. HAT MENDER came to see the patient and placed an
order for a Lidocaine patch. Pt is resting with call jacobs within reach.
[2025-03-10] MEDS: SYNTHROID 75 MCG PO (05:10)
[2025-03-10] MEDS: TYLENOL 650 MG PO (05:25)
[2025-03-10 05:36] LABS: Glucose - Point of Care 84 mg/dl (70-99)
[2025-03-10] MEDS: NSS (PRESERVATIVE FREE) IV (05:50)
[2025-03-10] MEDS: PROTONIX IV IV (05:51)
[2025-03-10] MEDS: LIDOCAINE 4% PATCH 1 PATCH TOPICAL (06:09)
[2025-03-10] MEDS: LANTUS SC (07:30)
[2025-03-10 08:24] LABS: Hematocrit 25.4 % (39.0-52.0); Hemoglobin 8.1 g/dL (13.0-18.0); Mean Corp Hgb Conc. 31.9 g/dL (33.0-37.0); Mean Corpuscular Volume 87.9 fL (80.0-94.0); Platelet Count 195 10^3/uL (130-400); Red Cell Dist. Width 17.4 % (11.5-14.5)
[2025-03-10 08:27] LABS: INR 1.40; PT 17.4 Sec (11.4-14.6)
[2025-03-10 08:52] LABS: Blood Urea Nitrogen 33 mg/dl (9-20); Calcium 9.9 mg/dl (8.4-10.2); Carbon Dioxide 23 mmol/L (22-30); Chloride 108 mmol/L (98-107); Estimated Creatinine Clearance 41 ml/min; Glucose 75 mg/dl (70-99); Potassium 4.4 mmol/L (3.5-5.1); Sodium 134 mmol/L (135-145); eGFR 45.62
--- NOTE | 2025-03-10 09:23 | W.PN.HOSP.TC ---
Today's Communication/Plan
-
continue IV iron
EGD today
Assessment / Plan
Assessment / Plan
Assessment:
TME in setting of CAMMY
Underlying early vascular dementia
- monitor mentation
- CT: performed 03/07 at [place] (For presentation there with change in mentation) was negative
- per family, back to baseline
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
Acute hyperkalemia
- Cr baseline 1.5 to 1.7 per records
- holding nephrotoxins, hold potassium
- follow BMP
ABLA on top of anemia of chronic disease and iron deficiency anemia
- Hb baseline 9.0 to 9.5
- s/p 1 unit PRBC; Hb 8.1 today
- continue IV iron course
acute GI bleed
- continue PPI BID
- GI consulted; EGD today; if negative then may need colonoscopy
Chronic HFpEF
- holding diuretics for CAMMY
- Jardiance previously stopped due to UTIs
- monitor weights/lytes daily
Paroxysmal Atrial Fibrillation
- Eliquis on hold due to heme-positive stools
- continue metoprolol for rate control
Hx CVA
- continue aspirin
Essential Hypertension
- continue metoprolol
- Losartan and spironolactone on hold
Hyperlipidemia
- continue rosuvastatin
Diabetes Mellitus, Type II
- continue glargine at half usual dose
- Monitor sugars and continue coverage insulin
Hypothyroidism
- continue levothyroxine
BPH
- continue tamsulosin
Vascular Dementia, per paperwork from [facility]
- Monitor for mood/behavior changes during hospitalization
DVT ppx: SCDs
Code: Full
Anticipated Discharge: 24 - 48 hours
Subjective/Interval History
-
Date of Service: March 10, 2025
resting comfortably, no complaints at present
Objective Data
-
Labs:
Laboratory Results
03/10/25
07:35
WBC 6.9
Hgb 8.1 L
Hct 25.4 L
Plt Count 195
PT 17.4 H
INR 1.40
Sodium 134 L
Potassium 4.4
Chloride 108 H
Carbon Dioxide 23
BUN 33 H
Creatinine 1.5 H
Glucose 75
Calcium 9.9
Vital Signs:
Vital Signs
Temp Pulse Resp BP Pulse Ox
97.4 F 61 16 136/61 100
03/10/25 07:52 03/10/25 07:52 03/10/25 07:52 03/10/25 07:52 03/10/25 07:52
I&O
03/09/25 03/10/25 03/11/25
06:59 06:59 06:59
Intake Total 0 / 0 730 / 730
Output Total 1050 / 1050 950 / 950
Balance -1050 / -1050 730 / 730 -950 / -950
Physical Exam
-
General: No Apparent Distress
HEENT: Normocephalic and Atraumatic
Respiratory: Negative Wheezes
Cardiac: Regular Rhythm and S1/S2
GI: Soft and Nontender
Genito-urinary: Negative No Costovertebral Tender
Neuro: AO x 3
Psych: Calm
Data Reviewed
-
Total Time Spent with Patient (in minutes): 41
Labs: Labs Reviewed by me
--- NOTE | 2025-03-10 10:35 | W.PN.UPDATE ---
Update Note
Progress Note Update
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 I did have to inject with epi and clip to stop bleeding.
moderate gastritis
plan:
clears
PPI
monitor and hold off on colonscopy,
hold eliquis today
[2025-03-10] MEDS: FLOMAX 0.4 MG PO (11:21)
[2025-03-10] MEDS: SINGULAIR 10 MG PO (11:21)
[2025-03-10] MEDS: CRESTOR 40 MG PO (11:21)
[2025-03-10] MEDS: LOPRESSOR PO (11:24)
[2025-03-10 11:57] LABS: Glucose - Point of Care 85 mg/dl (70-99)
--- NOTE | 2025-03-10 13:39 | PN.CDI ---
CDI
- -
CDI:
Physician Documentation Request
Admit Date: 03/08/25 16:21
Dear Doctor Elizabeth,
Patient found to have acute GI bleeding. 03/10 EGD performed.
EGD findings included 'Diffuse moderate inflammation characterized by congestion and erythema was found in the entire examined stomach. Three small mucosal papules (nodules) were found in the gastric body and in the gastric fundus.'
Please clarify the likely etiology of the GI bleeding:
nodules
gastritis
Other (please specify)
Use of terms such as suspected, likely, concern for, or probable (associated with a specific diagnosis that is being evaluated, monitored, or treated as if it exists) are acceptable and can be coded in the inpatient setting, when documented at the
time of discharge.
Thank you,
Mandie Paige RN, BSN
CDI Specialist
tiger text
Please use your independent medical judgment in providing your response.
[2025-03-10] MEDS: FERRLECIT 110 MG IV (14:22)
--- NOTE | 2025-03-10 15:49 | PTCARENOTE ---
Received patient this am AAOx3. Pt forgetful. Pt off unit to GI this am. Pt then returned S/P EGD. VSS Pt tolerated clear liquid diet well. Offered no complaints. Made patient comfortable. Cont to assess patient status.
[2025-03-10 16:41] LABS: Glucose - Point of Care 110 mg/dl (70-99)
[2025-03-10] MEDS: NSS (PRESERVATIVE FREE) 10 ML IV (17:32)
[2025-03-10] MEDS: PROTONIX IV 40 MG IV (17:36)
[2025-03-10] MEDS: LOPRESSOR 100 MG PO (20:29)
[2025-03-10 21:11] LABS: Glucose - Point of Care 108 mg/dl (70-99)
[2025-03-11] VITALS (7 sets, daily range): BP systolic 114–143; BP diastolic 51–74; PULSE 63; O2SAT 99; BMI 30.6
[2025-03-11] MEDS: PROTONIX IV 40 MG IV (04:55)
[2025-03-11] MEDS: NSS (PRESERVATIVE FREE) 10 ML IV (04:55)
[2025-03-11] MEDS: SYNTHROID 75 MCG PO (04:57)
[2025-03-11 07:07] LABS: Hematocrit 26.3 % (39.0-52.0); Hemoglobin 8.3 g/dL (13.0-18.0); Mean Corp Hgb Conc. 31.6 g/dL (33.0-37.0); Mean Corpuscular Volume 90.1 fL (80.0-94.0); Platelet Count 197 10^3/uL (130-400); Red Cell Dist. Width 17.6 % (11.5-14.5)
[2025-03-11 07:27] LABS: Blood Urea Nitrogen 26 mg/dl (9-20); Calcium 10.2 mg/dl (8.4-10.2); Carbon Dioxide 23 mmol/L (22-30); Chloride 110 mmol/L (98-107); Estimated Creatinine Clearance 44 ml/min; Glucose 99 mg/dl (70-99); Potassium 4.7 mmol/L (3.5-5.1); Sodium 135 mmol/L (135-145); eGFR 49.56
[2025-03-11 07:56] LABS: Glucose - Point of Care 99 mg/dl (70-99)
[2025-03-11] MEDS: NOVOLOG FLEXPEN-MODERATE RESISTANCE SC ×2 (09:11→12:00)
--- NOTE | 2025-03-11 09:14 | W.PN.GI.CBS2 ---
Today's Communication / Plan
-
hgb stable, eliquis restarted
Assessment / Plan
-
Pt is a 84yo with hx PAF on Eliquis for several years, congestive heart failure with preserveed EF, prior stroke, hypertension, hyperlipidemia, diabetes mellitus, sleep apnea chronic kidney disease, NIDDM, anemia of chronic disease, obesity with
prior gastric band, vascular dementia, hypothyroidism,, with melena s/p gastric erosion vs dielaufoy bleed
-hgb stable
- eliquis restarted
- if rebleeds would consider holding eliquis for longer
will sign off
did d/w Dr. Mendiola, pt and daughter ramiro
Subjective
Subjective
Date of Service: March 11, 2025
Pt w/o any bleeding since yesterday. hgb stable
Objective
Data Reviewed
Laboratory Data:
Laboratory Results
03/11/25 06:35
03/11/25 06:35
Laboratory Results
PT 17.4 Sec (11.4-14.6) H 03/10/25 07:35
INR 1.40 03/10/25 07:35
Total Bilirubin 0.6 mg/dl (0.2-1.3) 03/08/25 11:37
AST 54 U/L (17-59) 03/08/25 11:37
ALT 48 U/L (0-50) 03/08/25 11:37
Alkaline Phosphatase 143 U/L (38-126) H 03/08/25 11:37
Vital Signs and I&O:
Vital Signs
Temp Pulse Resp BP Pulse Ox
97.6 F 61 18 143/74 98
03/11/25 03:56 03/11/25 03:56 03/11/25 03:56 03/11/25 03:56 03/11/25 03:56
I&O
03/10/25 03/11/25 03/12/25
06:59 06:59 06:59
Intake Total 730 / 730 670 / 670
Output Total 2449 / 2449
Balance 730 / 730 -1779 /
Physical Exam
Physical Exam
GI: Soft, Non Distended and Non Tender
Neuro: Non Focal
[2025-03-11] MEDS: CRESTOR 40 MG PO (09:15)
[2025-03-11] MEDS: LOPRESSOR 100 MG PO (09:15)
[2025-03-11] MEDS: SINGULAIR 10 MG PO (09:15)
[2025-03-11] MEDS: LIDOCAINE 4% PATCH 1 PATCH TOPICAL (09:16)
[2025-03-11] MEDS: LANTUS 0.08 UNITS SC (09:17)
[2025-03-11] MEDS: ELIQUIS 5 MG PO ×2 (09:18→20:21)
[2025-03-11] MEDS: FLOMAX 0.4 MG PO (09:18)
--- NOTE | 2025-03-11 09:35 | W.PN.HOSP.TC ---
Today's Communication/Plan
-
monitor AM Hb while resuming Eliquis
DC planning in 24 hours to home/VN
Assessment / Plan
Assessment / Plan
Assessment:
TME in setting of CAMMY
Underlying early vascular dementia
- monitor mentation
- CT: performed 03/07 at [place] (For presentation there with change in mentation) was negative
- per family, back to baseline
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
Acute hyperkalemia
- Cr baseline 1.5 to 1.7 per records
- follow BMP
ABLA on top of anemia of chronic disease and iron deficiency anemia
- Hb baseline 9.0 to 9.5
- s/p 1 unit PRBC; Hb 8.3 today
- continue IV iron course
acute GI bleed
- continue PPI BID
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
- Hb stable
- GI Signed off
Chronic HFpEF
- resume diuretics with resolved CAMMY
- Jardiance previously stopped due to UTIs
- monitor weights/lytes daily
Paroxysmal Atrial Fibrillation
- Eliquis resumed; d/w GI
- continue metoprolol for rate control
Hx CVA
- continue aspirin; reduce to 81mg
Essential Hypertension
- continue metoprolol
- Losartan and spironolactone on hold
Hyperlipidemia
- continue rosuvastatin
Diabetes Mellitus, Type II
- continue glargine at half usual dose
- Monitor sugars and continue coverage insulin
Hypothyroidism
- continue levothyroxine
BPH
- continue tamsulosin
Vascular Dementia, per paperwork from [facility]
- Monitor for mood/behavior changes during hospitalization
DVT ppx: SCDs
Code: Full
Anticipated Discharge: Within 24 hours
Subjective/Interval History
-
Date of Service: March 11, 2025
Hb 8.3
no acute complaints
Objective Data
-
Labs:
Laboratory Results
03/11/25
06:35
WBC 6.1
Hgb 8.3 L
Hct 26.3 L
Plt Count 197
Sodium 135
Potassium 4.7
Chloride 110 H
Carbon Dioxide 23
BUN 26 H
Creatinine 1.4 H
Glucose 99
Calcium 10.2
Vital Signs:
Vital Signs
Temp Pulse Resp BP Pulse Ox
97.6 F 61 18 143/74 98
03/11/25 03:56 03/11/25 03:56 03/11/25 03:56 03/11/25 03:56 03/11/25 03:56
I&O
03/10/25 03/11/25 03/12/25
06:59 06:59 06:59
Intake Total 730 / 730 670 / 670
Output Total 2450 / 2450
Balance 730 / 730 -1780 / -1780
Physical Exam
-
General: No Apparent Distress
HEENT: Normocephalic and Atraumatic
Respiratory: Negative Wheezes
Cardiac: Regular Rhythm and S1/S2
GI: Soft and Nontender
Genito-urinary: No Costovertebral Tender
Neuro: AO x 3
Psych: Calm
Data Reviewed
-
Total Time Spent with Patient (in minutes): 42
Labs: Labs Reviewed by me
[2025-03-11 11:57] LABS: Glucose - Point of Care 124 mg/dl (70-99)
[2025-03-11] MEDS: DIOVAN 160 MG PO (12:13)
[2025-03-11] MEDS: BUMEX 1 MG PO (12:17)
[2025-03-11] MEDS: FERRLECIT 110 MG IV (14:24)
--- NOTE | 2025-03-11 15:24 | CM ---
Pt lives at [facility].
Joelle from [facility] said he had Ethan [facility]INA before and would like resumption .Referral in care port.
He has [facility] care givers.
PLAN Home to with Ethan MOLINA
[2025-03-11 16:57] LABS: Glucose - Point of Care 228 mg/dl (70-99)
[2025-03-11] MEDS: NOVOLOG FLEXPEN-MODERATE RESISTANCE 3 UNITS SC (17:54)
[2025-03-11] MEDS: LOPRESSOR PO (20:20)
[2025-03-11] MEDS: PROTONIX 40 MG PO (20:21)
[2025-03-11 21:51] LABS: Glucose - Point of Care 175 mg/dl (70-99)
[2025-03-12] VITALS (7 sets, daily range): BP systolic 113–151; BP diastolic 53–68; PULSE 61; O2SAT 100; BMI 29.9
[2025-03-12] MEDS: SYNTHROID 75 MCG PO (05:42)
[2025-03-12 06:35] LABS: Hematocrit 24.7 % (39.0-52.0); Hemoglobin 7.8 g/dL (13.0-18.0); Mean Corp Hgb Conc. 31.6 g/dL (33.0-37.0); Mean Corpuscular Volume 88.8 fL (80.0-94.0); Platelet Count 192 10^3/uL (130-400); Red Cell Dist. Width 17.2 % (11.5-14.5)
[2025-03-12 07:08] LABS: Blood Urea Nitrogen 25 mg/dl (9-20); Calcium 10.2 mg/dl (8.4-10.2); Carbon Dioxide 25 mmol/L (22-30); Chloride 109 mmol/L (98-107); Estimated Creatinine Clearance 37 ml/min; Glucose 132 mg/dl (70-99); Potassium 4.1 mmol/L (3.5-5.1); Sodium 138 mmol/L (135-145); eGFR 45.62
[2025-03-12 07:46] LABS: Glucose - Point of Care 146 mg/dl (70-99)
[2025-03-12] MEDS: CRESTOR 40 MG PO (08:12)
[2025-03-12] MEDS: DIOVAN 160 MG PO (08:12)
[2025-03-12] MEDS: FLOMAX 0.4 MG PO (08:12)
[2025-03-12] MEDS: SINGULAIR 10 MG PO (08:12)
[2025-03-12] MEDS: PROTONIX 40 MG PO ×2 (08:12→20:27)
[2025-03-12] MEDS: BUMEX 1 MG PO (08:12)
[2025-03-12] MEDS: LANTUS 0.08 UNITS SC (08:13)
[2025-03-12] MEDS: LOPRESSOR 100 MG PO ×2 (08:13→20:27)
[2025-03-12] MEDS: ALDACTONE 25 MG PO (08:13)
[2025-03-12] MEDS: LIDOCAINE 4% PATCH 1 PATCH TOPICAL (08:14)
[2025-03-12] MEDS: NOVOLOG FLEXPEN-MODERATE RESISTANCE SC (08:20)
[2025-03-12] MEDS: ELIQUIS PO (10:22)
[2025-03-12 11:55] LABS: Glucose - Point of Care 184 mg/dl (70-99)
--- NOTE | 2025-03-12 12:39 | W.PN.HOSP.TC ---
Today's Communication/Plan
-
repeat CBC in AM; may need transfusion prior to home DC 03/13
Assessment / Plan
Assessment / Plan
Assessment:
TME in setting of CAMMY
Underlying early vascular dementia
- monitor mentation
- CT: performed 03/07 at [place] (For presentation there with change in mentation) was negative
- per family, back to baseline
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
Acute hyperkalemia
- Cr baseline 1.5 to 1.7 per records
- follow BMP
ABLA on top of anemia of chronic disease and iron deficiency anemia
- Hb baseline 9.0 to 9.5
- s/p 1 unit PRBC; Hb 7.8 today
- monitor AM Hb; may need transfusion
- continue IV iron course
acute GI bleed
- continue PPI BID
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
- Hb stable
- GI Signed off
Chronic HFpEF
- resume diuretics with resolved CAMMY
- Jardiance previously stopped due to UTIs
- monitor weights/lytes daily
Paroxysmal Atrial Fibrillation
- Eliquis resumed but drop in Hb; d/w GI previously that if drop in Hb, recommended for longer Eliquis hold of 1 week; Eliquis now held.
- also d/w family about pursuing [facility]
- continue metoprolol for rate control
Hx CVA
- continue aspirin; reduce to 81mg
Essential Hypertension
- continue metoprolol
- continue valsartan and spironolactone
Hyperlipidemia
- continue rosuvastatin
Diabetes Mellitus, Type II
- continue glargine at half usual dose
- Monitor sugars and continue coverage insulin
Hypothyroidism
- continue levothyroxine
BPH
- continue tamsulosin
Vascular Dementia, per paperwork from [facility]
- Monitor for mood/behavior changes during hospitalization
DVT ppx: SCDs
Code: Full
Anticipated Discharge: Within 24 hours
Subjective/Interval History
-
Date of Service: March 12, 2025
Hb 7.8 today, down from 8.3
Eliquis held (last dose 03/11 PM)
patient denies any complaints; no clinical sign of bleeding per nursing team
Objective Data
-
Labs:
Laboratory Results
03/12/25
06:14
WBC 6.7
Hgb 7.8 L
Hct 24.7 L
Plt Count 192
Sodium 138
Potassium 4.1
Chloride 109 H
Carbon Dioxide 25
BUN 25 H
Creatinine 1.5 H
Glucose 132 H
Calcium 10.2
Vital Signs:
Vital Signs
Temp Pulse Resp BP Pulse Ox
97.8 F 61 16 113/53 99
03/12/25 11:30 03/12/25 11:30 03/12/25 11:30 03/12/25 11:30 03/12/25 11:30
I&O
03/11/25 03/12/25 03/13/25
06:59 06:59 06:59
Intake Total 670 / 670 180 / 180
Output Total 2450 / 2450 1100 / 1100
Balance -1780 / -1780 -920 / -920
Physical Exam
-
General: No Apparent Distress
HEENT: Normocephalic and Atraumatic
Respiratory: Negative Wheezes
Cardiac: Regular Rhythm and S1/S2
GI: Soft
Genito-urinary: No Costovertebral Tender
Neuro: AO x 3
Psych: Calm
Data Reviewed
-
Total Time Spent with Patient (in minutes): 42
Labs: Labs Reviewed by me
[2025-03-12] MEDS: NOVOLOG FLEXPEN-MODERATE RESISTANCE 1 UNITS SC ×2 (12:45→18:00)
[2025-03-12] MEDS: FERRLECIT 110 MG IV (13:24)
--- NOTE | 2025-03-12 13:53 | W.PN.GI.CBS2 ---
Today's Communication / Plan
-
PLAN:etiology of bleeding likely papule noted on EGD wtih treatment
Pt with anemia with concern for papule with treatment 03/10
Pt with noted BUN rise up to 54 on admission now down to 25 with hbg in 8 range but now 7.8 today
last stool 03/09 black
pt had Eliquis last 03/11 PM and now on hold
on 1800 ADA diet
cont PPI BID
monitor stool output-- reviewed with pt and daughter anticipate first stool to be black with residual bleeding
s/p 1 unit PRBC's since admission and 4 doses IV iron to resume oral iron on discharge
discussed with Dr. Johnson, Dr. Mendiola, nursing staff, pt and daughter with rise in BUN, black stools likely upper GI bleed as noted on EGD. BUN now down, no stool but slight drop in hbg to 7.8 - no signs of aggressive bleeding would repeat hbg and
BUN in AM
if continued drop consider repeat EGD to assess for recurrent bleeding (will make NPO for AM til labs reviewed, if stable consider discharge with check next week and continue periodic checks per PCP
if patient BUN stable and still drop consider colonoscopy-- (reviewed risk given age and pt also states would like to hold unless needed)
If patient completes EGD and colon and still anemic would need capsule
also added hx prostate CA with radiation-- no signs of red blood or mucous-- in differential of bleeding but no signs of active process
all questions answered
Assessment / Plan
-
Pt is a 84yo with hx PAF on Eliquis for several years, congestive heart failure with preserved EF, prior stroke, hypertension, hyperlipidemia, diabetes mellitus, prostate CA with radiation, sleep apnea chronic kidney disease, NIDDM, anemia of
chronic disease, obesity with prior gastric band, vascular dementia, hypothyroidism, and BPH with recent admission to [place] in February for acute heart failure with diuresis. He went to SNF then back for [facility] for last week and noted with
confusion and presents to . On admission pt was noted with K 5.8 creat 1.8, calcium 10.6, hbg down to 7 after admission with baseline around 9 range iron 30, TIBC 426, % sat 7 and ferritin 26.8. Pt as also noted with dark heme + stool in ER.
In review with pt and daughter Maria Esther no history of anemia or transfusions in past. Pt may have had colonoscopy years ago. He did not recall EGD in past but ? completed with gastric banding in past. Occasional NSAID use and denies daily ASA as
noted on home med but does use Tylenol as needed.
03/10/25 -Ahmad - Normal esophagus. Gastritis, characterized by congestion (edema) and erythema. 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 Biopsied.Injected. Clip was placed. Normal examined duodenum.
Eliquis resumed 03/11 with 2 doses then stopped last dose 03/11 PM
Laboratory Tests
03/09/25 03/09/25 03/10/25
04:10 16:54 07:35
Hgb 7.0 L 8.4 L 8.1 L
03/11/25 03/12/25
06:35 06:14
Hgb 8.3 L 7.8 L
-acute on chronic anemia with iron deficiency with heme + stools in ER
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
-confusion on admission now improved
-electrolyte imbalance hyperkalemia on admisison now resolved
-afib on Eliquis prior to admission
other med problems:
-Congestive Heart Failure, preserved EF
-hx prostate CA with prior radiation
-Hx CVA
-Essential Hypertension
-Hyperlipidemia
-Diabetes Mellitus
-Hypothyroidism
-Continue levothyroxine
-BPH
-Vascular Dementia
PLAN:etiology of bleeding likely papule noted on EGD wtih treatment
Pt with anemia with concern for papule with treatment 03/10
Pt with noted BUN rise up to 54 on admission now down to 25 with hbg in 8 range but now 7.8 today
last stool 03/09 black
pt had Eliquis last 03/11 PM and now on hold
on 1800 ADA diet
cont PPI BID
monitor stool output-- reviewed with pt and daughter anticipate first stool to be black with residual bleeding
s/p 1 unit PRBC's since admission and 4 doses IV iron to resume oral iron on discharge
discussed with Dr. Johnson, Dr. Mendiola, nursing staff, pt and daughter with rise in BUN, black stools likely upper GI bleed as noted on EGD. BUN now down, no stool but slight drop in hbg to 7.8 - no signs of aggressive bleeding would repeat hbg and
BUN in AM
if continued drop consider repeat EGD to assess for recurrent bleeding (will make NPO for AM til labs reviewed, if stable consider discharge with check next week and continue periodic checks per PCP
if patient BUN stable and still drop consider colonoscopy-- (reviewed risk given age and pt also states would like to hold unless needed)
If patient completes EGD and colon and still anemic would need capsule
also added hx prostate CA with radiation-- no signs of red blood or mucous-- in differential of bleeding but no signs of active process
all questions answered
Subjective
Subjective
Date of Service: March 12, 2025
asked to see again for anemia
03/09 last stool recorded- black, on ADA diet
denies dizziness or lightheadedness
Objective
Data Reviewed
Laboratory Data:
Laboratory Results
03/12/25 06:14
03/12/25 06:14
Laboratory Results
PT 17.4 Sec (11.4-14.6) H 03/10/25 07:35
INR 1.40 03/10/25 07:35
Total Bilirubin 0.6 mg/dl (0.2-1.3) 03/08/25 11:37
AST 54 U/L (17-59) 03/08/25 11:37
ALT 48 U/L (0-50) 03/08/25 11:37
Alkaline Phosphatase 143 U/L (38-126) H 03/08/25 11:37
Vital Signs and I&O:
Vital Signs
Temp Pulse Resp BP Pulse Ox
97.8 F 61 16 113/53 99
03/12/25 11:30 03/12/25 11:30 03/12/25 11:30 03/12/25 11:30 03/12/25 11:30
I&O
03/11/25 03/12/25 03/13/25
06:59 06:59 06:59
Intake Total 670 / 670 180 / 180
Output Total 2450 / 2450 1100 / 1100
Balance -1780 / -1780 -920 / -920
Physical Exam
Physical Exam
HEENT: Anicteric and Moist mucous membranes
Cardiology: Normal Sinus Rhythm
Pulmonary: Clear
GI: Soft, Non Distended and Non Tender
Extremities: No Edema
Neuro: Non Focal
--- NOTE | 2025-03-12 16:19 | CM ---
Pt lives at [facility].
Joelle from [facility] said he had Ethan [facility]OLINA before and would like resumption .Referral in care port.
He has [facility] care givers.
Spoke with dgt Maria Esther [phone] she wants pt to return to [facility] with Ethan MOLINA . She is working on increase time for care givers.
PLAN Home to with Ethan MOLINA
[2025-03-12 16:37] LABS: Glucose - Point of Care 194 mg/dl (70-99)
[2025-03-12 21:25] LABS: Glucose - Point of Care 272 mg/dl (70-99)
[2025-03-13 03:57] VITALS: BP 138/65
[2025-03-13 05:19] VITALS: BMI 29.9
[2025-03-13 06:01] LABS: Glucose - Point of Care 138 mg/dl (70-99)
[2025-03-13] MEDS: SYNTHROID 75 MCG PO (06:01)
[2025-03-13 07:28] LABS: Hematocrit 26.4 % (39.0-52.0); Hemoglobin 8.2 g/dL (13.0-18.0); Mean Corp Hgb Conc. 31.1 g/dL (33.0-37.0); Mean Corpuscular Volume 89.5 fL (80.0-94.0); Platelet Count 202 10^3/uL (130-400); Red Cell Dist. Width 17.4 % (11.5-14.5)
[2025-03-13 07:35] LABS: Glucose - Point of Care 137 mg/dl (70-99)
[2025-03-13 07:42] VITALS: BP 136/72
[2025-03-13 08:00] LABS: Blood Urea Nitrogen 26 mg/dl (9-20); Calcium 10.0 mg/dl (8.4-10.2); Carbon Dioxide 26 mmol/L (22-30); Chloride 108 mmol/L (98-107); Estimated Creatinine Clearance 39 ml/min; Glucose 125 mg/dl (70-99); Potassium 4.1 mmol/L (3.5-5.1); Sodium 139 mmol/L (135-145); eGFR 49.56
[2025-03-13] MEDS: ALDACTONE 25 MG PO (08:05)
[2025-03-13] MEDS: LOPRESSOR 100 MG PO (08:05)
[2025-03-13] MEDS: PROTONIX 40 MG PO (08:05)
[2025-03-13] MEDS: CRESTOR 40 MG PO (08:05)
[2025-03-13] MEDS: FLOMAX 0.4 MG PO (08:05)
[2025-03-13] MEDS: BUMEX 1 MG PO (08:05)
[2025-03-13] MEDS: DIOVAN 160 MG PO (08:05)
[2025-03-13] MEDS: SINGULAIR 10 MG PO (08:06)
[2025-03-13] MEDS: LIDOCAINE 4% PATCH 1 PATCH TOPICAL (08:06)
[2025-03-13] MEDS: LANTUS SC (08:07)
--- NOTE | 2025-03-13 09:04 | W.PN.GI.CBS2 ---
Addendum entered and electronically signed by Van Boudreaux MD 03/13/25 12:40:
I saw and examined the patient.
The PA's note was reviewed and I agree with the note.
Comment:
S/p EGD with endoscopic intervention. No further bleeding and Hgb remains stable. Agree with d/c home, no repeat EGD warranted at this time.
Original Note:
Today's Communication / Plan
-
etiology of bleeding/anemia likely papule noted on EGD with treatment 03/11 and slight drop in hbg after Eliquis resume
Pt with noted BUN rise up to 54 on admission now 26 improved and hbg up to 8.2 today
stool 03/12 brown stool
no current signs of rebleeding or problems
reviewed with Dr. Johnson 03/12 -- would hold a few more days and resume next week
will need repeat H/H next week wtih PCP
reviewed with patient and daughter with brown stool and stable hbg hold on repeat EGD
ok 1800 ADA diet
cont PPI BID
s/p 1 unit PRBC's since admission and 4 doses IV iron to resume oral iron on discharge
plan is if recurrent bleeding return to hospital and repeat EGD and consider colonoscopy
I also discussed with patient and daughter with hx lap band should have follow up check as pt has not had checked for some time
all questions answered updated with Dr. Boudreaux and Dr. Mendiola
Assessment / Plan
-
Pt is a 84yo with hx PAF on Eliquis for several years, congestive heart failure with preserved EF, prior stroke, hypertension, hyperlipidemia, diabetes mellitus, prostate CA with radiation, sleep apnea chronic kidney disease, NIDDM, anemia of
chronic disease, obesity with prior gastric band, vascular dementia, hypothyroidism, and BPH with recent admission to [place] in February for acute heart failure with diuresis. He went to SNF then back for [facility] for last week and noted with
confusion and presents to . On admission pt was noted with K 5.8 creat 1.8, calcium 10.6, hbg down to 7 after admission with baseline around 9 range iron 30, TIBC 426, % sat 7 and ferritin 26.8. Pt as also noted with dark heme + stool in ER.
In review with pt and daughter Maria Esther no history of anemia or transfusions in past. Pt may have had colonoscopy years ago. He did not recall EGD in past but ? completed with gastric banding in past. Occasional NSAID use and denies daily ASA as
noted on home med but does use Tylenol as needed.
03/10/25 -Ahmad - Normal esophagus. Gastritis, characterized by congestion (edema) and erythema. 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 Biopsied.Injected. Clip was placed. Normal examined duodenum.
Eliquis resumed 03/11 with 2 doses then stopped last dose 03/11 PM
Laboratory Tests
03/09/25 03/09/25 03/10/25
04:10 16:54 07:35
Hgb 7.0 L 8.4 L 8.1 L
03/11/25 03/12/25
06:35 06:14
Hgb 8.3 L 7.8 L
Laboratory Tests
03/13/25
07:16
Hgb 8.2 L
-acute on chronic anemia with iron deficiency with heme + stools in ER
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
-confusion on admission now improved
-electrolyte imbalance hyperkalemia on admisison now resolved
-afib on Eliquis prior to admission
other med problems:
-Congestive Heart Failure, preserved EF
-hx prostate CA with prior radiation
-Hx CVA
-Essential Hypertension
-Hyperlipidemia
-Diabetes Mellitus
-Hypothyroidism
-Continue levothyroxine
-BPH
-Vascular Dementia
PLAN:
etiology of bleeding/anemia likely papule noted on EGD with treatment 03/11 and slight drop in hbg after Eliquis resume
Pt with noted BUN rise up to 54 on admission now 26 improved and hbg up to 8.2 today
stool 03/12 brown stool
no current signs of rebleeding or problems
reviewed with Dr. Johnson 03/12 -- would hold a few more days and resume next week
will need repeat H/H next week wtih PCP
reviewed with patient and daughter with brown stool and stable hbg hold on repeat EGD
ok 1800 ADA diet
cont PPI BID
s/p 1 unit PRBC's since admission and 4 doses IV iron to resume oral iron on discharge
plan is if recurrent bleeding return to hospital and repeat EGD and consider colonoscopy
I also discussed with patient and daughter with hx lap band should have follow up check as pt has not had checked for some time
all questions answered updated with Dr. Boudreaux and Dr. Mendiola
Subjective
Subjective
Date of Service: March 13, 2025
stools brown, NPO pending labs -- pt feeling well without complaints
Objective
Data Reviewed
Laboratory Data:
Laboratory Results
03/13/25 07:16
03/13/25 07:16
Laboratory Results
PT 17.4 Sec (11.4-14.6) H 03/10/25 07:35
INR 1.40 03/10/25 07:35
Total Bilirubin 0.6 mg/dl (0.2-1.3) 03/08/25 11:37
AST 54 U/L (17-59) 03/08/25 11:37
ALT 48 U/L (0-50) 03/08/25 11:37
Alkaline Phosphatase 143 U/L (38-126) H 03/08/25 11:37
Vital Signs and I&O:
Vital Signs
Temp Pulse Resp BP Pulse Ox
97.4 F 66 22 136/72 97
03/13/25 07:42 03/13/25 07:42 03/13/25 07:42 03/13/25 07:42 03/13/25 07:42
I&O
03/12/25 03/13/25 03/14/25
06:59 06:59 06:59
Intake Total 180 / 180 780 / 780
Output Total 1100 / 1100 1125 / 1125
Balance -920 / -920 -345 / -345
Physical Exam
Physical Exam
HEENT: Anicteric and Moist mucous membranes
Cardiology: Normal Sinus Rhythm
Pulmonary: Clear
GI: Soft, Non Distended and Non Tender
Extremities: No Edema
Neuro: Non Focal
--- NOTE | 2025-03-13 10:39 | W.PN.HOSP.TC ---
Addendum entered and electronically signed by Diya Mendiola MD 03/13/25 11:59:
Yes, GI bleed is related to/associated with/due to/exacerbated by Eliquis
Original Note:
Today's Communication/Plan
-
dc to home/VN today
Assessment / Plan
Assessment / Plan
Assessment:
TME in setting of CAMMY
Underlying early vascular dementia
- monitor mentation
- CT: performed 03/07 at [place] (for presentation there with change in mentation) was negative
- per family, back to baseline
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
Acute hyperkalemia
- Cr baseline 1.5 to 1.7 per records
- follow BMP
ABLA on top of anemia of chronic disease and iron deficiency anemia
- Hb baseline 9.0 to 9.5
- s/p 1 unit PRBC; Hb 8.2 today
- monitor AM Hb; may need transfusion
- continue IV iron course; oral iron at discharge
acute GI bleed
- continue PPI BID
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
- Hb stable
- if recurrent bleeding in outpatient setting, then return to hospital precautions reviewed with daughter and plan for repeat EGD/Colon at that time likely
Chronic HFpEF
- resume diuretics with resolved CAMMY
- Jardiance previously stopped due to UTIs
- monitor weights/lytes daily
Paroxysmal Atrial Fibrillation
- Eliquis resumed but drop in Hb; d/w GI previously that if drop in Hb, recommended for longer Eliquis hold of 1 week; Eliquis now held.
- also d/w family about pursuing [facility]
- continue metoprolol for rate control
Hx CVA
- continue aspirin; reduce to 81mg
Essential Hypertension
- continue metoprolol
- continue valsartan and spironolactone
Hyperlipidemia
- continue rosuvastatin
Diabetes Mellitus, Type II
- continue glargine at half usual dose
- Monitor sugars and continue coverage insulin
Hypothyroidism
- continue levothyroxine
BPH
- continue tamsulosin
Vascular Dementia, per paperwork from [facility]
- Monitor for mood/behavior changes during hospitalization
DVT ppx: SCDs
Code: Full
More than 30 minutes spent in discharge including
Final examination of the patient
Summarizing hospital stay
Instructions for continuing care to all relevant caregivers
Preparation of discharge records, prescriptions, and referral forms
Total time spent (in minutes): 42
Anticipated Discharge: Today
Subjective/Interval History
-
Date of Service: March 13, 2025
resting comfortably, no complaints
Objective Data
-
Labs:
Laboratory Results
03/13/25
07:16
WBC 6.8
Hgb 8.2 L
Hct 26.4 L
Plt Count 202
Sodium 139
Potassium 4.1
Chloride 108 H
Carbon Dioxide 26
BUN 26 H
Creatinine 1.4 H
Glucose 125 H
Calcium 10.0
Vital Signs:
Vital Signs
Temp Pulse Resp BP Pulse Ox
97.4 F 66 22 136/72 97
03/13/25 07:42 03/13/25 07:42 03/13/25 07:42 03/13/25 07:42 03/13/25 08:15
I&O
03/12/25 03/13/25 03/14/25
06:59 06:59 06:59
Intake Total 180 / 180 780 / 780
Output Total 1100 / 1100 1125 / 1125
Balance -920 / -920 -345 / -345
Physical Exam
-
General: No Apparent Distress
HEENT: Normocephalic and Atraumatic
Respiratory: Negative Wheezes
Cardiac: Regular Rhythm and S1/S2
GI: Soft
Genito-urinary: No Costovertebral Tender
Neuro: AO x 3
Psych: Calm
Data Reviewed
-
Total Time Spent with Patient (in minutes): 42
Labs: Labs Reviewed by me
--- NOTE | 2025-03-13 10:48 | W.DCSUMMARY ---
Discharge Summary
Discharge Data
Date of Admission: 03/08/25
Date of Discharge: 03/13/25
-
Pending Results: No
Hospital Course
84 y/o M with past medical history of paroxysmal atrial fibrillation, congestive heart failure, prior stroke, hypertension, hyperlipidemia, diabetes mellitus, chronic kidney disease, anemia of chronic disease, vascular dementia, hypothyroidism, and
BPH presented with confusion related to CAMMY. He also had upper GI bleed.
His confusion improved as his creatinine improved to baseline after blood and IVF.
For his upper GI bleed/melena, Eliquis was held. An EGD on 03/10 revealed gastric erosion vs Dieulafoy bleed with epi and clipping. He was placed on PPI BID. Post-procedure he was resumed on Eliquis but had a small drop in Hb that self improved with
further holding of Eliquis. At the time of discharge, Eliquis will be held pending repeat blood work. Given patients age and now GI bleeding, it was also discussed with patient and family about discussing a Watchman device.
He was discharge home with VN on 03/13 and strict return precautions were reviewed with patient/daughter.
Discharge Plan
-
Patient Disposition: Home with Home Care
Discharge Diagnosis/Procedures: upper GI bleed s/p EGD 03/10/25. Anemia requiring 1 unit blood, CAMMY causing change in mentation (resolved)
Condition: Fair
Diet: 2 Gram Sodium and Diabetic, Carb Controlled
Activity: As tolerated
Bathing Restrictions: None
Blood Work: repeat CBC/BMP in 1 week - script given
Others Tests: if signs of recurring bleeding - return to hospital for repeat EGD and/or colonoscopy
Other Services: VN, PT and OT
Activity Restrictions/Additional Instructions:
follow up with to check lap band with hx band years ago.
If any recurrent black stools, dizziness, weakness or drop in hbg return to ER
Referrals:
Kedar Cain MD [Family Provider] - in three to four days
Prescriptions:
New
aspirin 81 mg tablet,delayed release (DR/EC)
81 mg PO DAILY Qty: 30 0RF
pantoprazole 40 mg Tablet,Delayed Release (Dr/Ec)
40 mg PO BID Qty: 60 0RF
(DME) basic metabolic panel
See Rx Instructions .Route .MEDSUPPLY Qty: 1 0RF
Rx Instructions:
in 1 week
(DME) complete blood count
See Rx Instructions .Route .MEDSUPPLY Qty: 1 0RF
Rx Instructions:
in 1 week
Continued
metoprolol tartrate 100 mg tablet
100 mg PO BID
cyanocobalamin (vitamin B-12) 1,000 mcg tablet
1,000 mcg PO DAILY
therapeutic multivitamin Tablet
1 tab PO DAILY
spironolactone 25 mg tablet
25 mg PO DAILY
levothyroxine 75 mcg tablet
75 mcg PO DAILY
tamsulosin 0.4 mg capsule
0.4 mg PO DAILY
ferrous sulfate 325 mg (65 mg iron) tablet
325 mg PO DAILY
bumetanide 1 mg tablet
1 mg PO DAILY
montelukast 10 mg tablet
10 mg PO DAILY
valsartan 160 mg tablet
160 mg PO DAILY
cholecalciferol (vitamin D3) 25 mcg (1,000 unit) capsule
25 mcg PO DAILY
rosuvastatin 40 mg tablet
40 mg PO DAILY
Janumet 50-500 mg tablet
1 tab PO BID
insulin glargine 100 unit/mL (3 mL) Insulin Pen
15 unit SC DAILY
Held
Eliquis 5 mg tablet
5 mg PO BID
Hold Instructions: hold until repeat blood work results available and discussion with PCP/[facility] on safe resumption
Discontinued
aspirin 325 mg tablet
325 mg PO DAILY
oxycodone-acetaminophen 5-325 mg Tablet
1 tab PO Q6H PRN (Reason: moderate pain)
Discharge Orders:
Discharge Patient (As Directed); Ordered 03/13/25
Ordered By: Diya Mendiola
Discharge Date and Time
Discharge Date/Time: 03/13/25 15:13
Print Language: SURINAMESE
--- NOTE | 2025-03-13 11:12 | PN.CDI ---
CDI
- -
CDI:
Physician Documentation Request
Admit Date: 03/08/25 16:21
Dear Doctor Maury
Progress note includes a diagnosis of acute GI bleed.
Patients Eliquis has been held.
Please clarify if a relationship exist between these conditions:
Yes, GI bleed is related to/associated with/due to/exacerbated by Eliquis
No, GI bleed is not related to/associated with/due to/exacerbated by Eliquis
Unable to determine
Use of terms such as suspected, likely, concern for, or probable (associated with a specific diagnosis that is being evaluated, monitored, or treated as if it exists) are acceptable and can be coded in the inpatient setting, when documented at the
time of discharge.
Thank you,
Mandie Paige RN BSN
CDI Specialist
tiger text
Please use your independent medical judgment in providing your response.
[2025-03-13 11:47] VITALS: BP 112/49
--- NOTE | 2025-03-13 11:59 | CM ---
Addendum entered by Rita Aranda 03/13/25 12:34:
Dtr made aware of pickup time for patient. REferral sent via fax to [facility] for VN.

Original Note:
Pt is discharged back to [facility]. Pt will have caregivers in place by 1:30-2:00pm per dtr. Pt made aware of discharge plans.
Will fax referral in to [facility] for Randi's VN. Hui, at [facility] aware of discharge and VN referral. Stated she would try to start services on sunday, if possible.
[2025-03-13 12:05] LABS: Glucose - Point of Care 186 mg/dl (70-99)
[2025-03-13] MEDS: NOVOLOG FLEXPEN-MODERATE RESISTANCE 1 UNITS SC (12:06)
[2025-03-13 14:57] VITALS: BP 132/60
== END 2025-03-13 15:13 | disposition home health service (06) | DRG 377 ==
LOC: 4 EAST ACU 16:21
PROVIDERS: Internal Medicine; Nurse Practitioner Adult Health; Nurse Practitioner Family; Physician Assistant Medical; ADMITTING PHYSICIAN Hospitalist; ATTENDING PHYSICIAN Internal Medicine; CONSULT PHYSICIAN Internal Medicine Gastroenterology; EMERGENCY PHYSICIAN Emergency Medicine; FAMILY PHYSICIAN Internal Medicine
PROC: 30233N1 Transfusion of Nonautologous Red Blood Cells into Peripheral Vein, Percutaneous Approach (ICD-10-PCS; 2025-03-09)
PROC: 0W3P8ZZ Control Bleeding in Gastrointestinal Tract, Via Natural or Artificial Opening Endoscopic (ICD-10-PCS; 2025-03-10)
PROC: 0DB68ZX Excision of Stomach, Via Natural or Artificial Opening Endoscopic, Diagnostic (ICD-10-PCS; 2025-03-10)
DX: K31.82 Dieulafoy lesion (hemorrhagic) of stomach and duodenum (principal); G92.8 Other toxic encephalopathy; K92.1 Melena; N17.9 Acute kidney failure, unspecified; I13.0 Hypertensive heart and chronic kidney disease with heart failure and stage 1 through stage 4 chronic kidney disease, or unspecified chronic kidney disease; N39.0 Urinary tract infection, site not specified; D68.32 Hemorrhagic disorder due to extrinsic circulating anticoagulants; D62 Acute posthemorrhagic anemia; D50.9 Iron deficiency anemia, unspecified; E87.5 Hyperkalemia; E11.22 Type 2 diabetes mellitus with diabetic chronic kidney disease; N18.32 Chronic kidney disease, stage 3b; I48.0 Paroxysmal atrial fibrillation; Z79.01 Long term (current) use of anticoagulants; E03.9 Hypothyroidism, unspecified; N40.0 Benign prostatic hyperplasia without lower urinary tract symptoms; K29.70 Gastritis, unspecified, without bleeding; D63.1 Anemia in chronic kidney disease; Z79.4 Long term (current) use of insulin; Z79.82 Long term (current) use of aspirin; Z79.899 Other long term (current) drug therapy; Z87.891 Personal history of nicotine dependence
CPT/HCPCS: 71046; 80048; 80053; 81003; 81015; 82728; 82962; 83036; 83540; 83550; 83880; 84484; 85014; 85018; 85025; 85027; 85610; 86850; 86900; 86901; 86920; 87070; 88305; 88342; 93005; 96374; 97116; 97162; 97166; 99285; J2916; P9016